=== PATIENT | female | born 1995 | race Caucasian/White ===

== ENCOUNTER 2018-02-23 18:58 | Inpatient (IN) | payer BC, OTHER ==
[~2018-02-23] VITALS: Ht 160 cm; Wt 43.1 kg
--- NOTE | 2018-02-23 19:15 | NUR ---
Start of Shift Patient Received. Patient is noted in the activities room participating in a group meeting. Per endorsement, patient continues on a 5 day Ativan and 5 day Subutex taper. Patient has been compliant with medications and tolerating plan of care well. No PRN medications administered. Last noted COWS 8 and CIWA 10. All needs attended to promptly. Will continue to monitor. Addendum: 02/24/18 at 0226 by CHELO MCKEON LVN ENTERED IN ERROR
[2018-02-23 20:45] VITALS: BP 110/61
--- NOTE | 2018-02-23 20:45 | NUR ---
Pre-Admission Assessment Patient is a 23 year old female seen in intake. She is alert to name and place. She is noted with to be very intoxicated with her head on the desk. Patient is able to lift head in response to name but her speech is noted to be slurred and unclear. Patient is noted to answer questions with one word answers and is noted to be very short and flat. Breathing is even and non labored. Patient is noted to be unkempt, dirty finger nails, and multiple scattered track bonilla to bilateral upper extremities. Discussed with patient admission policies of the unit and patient is able to verbalize understanding. Patient reported that she is arriving from the streets of [place] and is homeless and unemployed. Patient is ambulatory with assistance only. Vital signs taken and noted as follows: 110/61, 74, 99%, 16, 98.0, 0/10. Home medications policies reviewed with patient and she is able to verbalize understanding in regards to narcotic medication disposal. All needs attended to promptly. Will continue admission assessment on unit.
[2018-02-23] MEDS ORDERED: ACETAMINOPHEN 325 MG TABLET PO PRN (21:00)
[2018-02-23] MEDS ORDERED: MAG HYDROX/AL HYDROX/SIMETH 30 ML LIQUID UDC PO PRN (21:00)
[2018-02-23] MEDS ORDERED: DIAZEPAM 5 MG TABLET PO PRN (21:00)
[2018-02-23] MEDS ORDERED: LOPERAMIDE HCL 2 MG CAPSULE PO PRN ×2 (21:00)
[2018-02-23] MEDS ORDERED: MAGNESIUM HYDROXIDE 30 ML LIQUID UDC PO PRN (21:00)
[2018-02-23] MEDS ORDERED: ONDANSETRON 4 MG/2 ML VIAL IM PRN (21:00)
[2018-02-23] MEDS ORDERED: DICYCLOMINE HCL 20 MG TABLET PO PRN (21:00)
[2018-02-23] MEDS ORDERED: LORAZEPAM 2 MG/1 ML VIAL IM PRN (21:00)
[2018-02-23] MEDS ORDERED: CLONIDINE HCL 0.1 MG TABLET PO PRN (21:00)
[2018-02-23] MEDS ORDERED: ONDANSETRON ODT 4 MG TAB.RAPDIS SL PRN (21:00)
[2018-02-23] MEDS ORDERED: MIRALAX 17 GM POWD.PACK PO PRN (21:00)
[2018-02-23] MEDS ORDERED: DIAZEPAM 10 MG TABLET PO PRN ×2 (21:00)
[2018-02-23 21:21] VITALS: BP 97/54
[2018-02-23 21:30] LABS: BASOPHILS # (AUTO) 0.1 K/uL (0.0-8.0); BASOPHILS % (AUTO) 1.3 % (0.0-2.0); EOSINOPHILS # (AUTO) 0.2 K/uL (0.0-0.7); HEMATOCRIT 37.3 % (31.2-41.9); HEMOGLOBIN 12.7 g/dL (10.9-14.3); LYMPHOCYTES # (AUTO) 2.5 K/uL (20.0-40.0); MEAN CORPUSCULAR HEMOGLOBIN 28.3 uug (24.7-32.8); MEAN CORPUSCULAR HGB CONC 34 g/dL (32.3-35.6); MEAN CORPUSCULAR VOLUME 83.2 fL (75.5-95.3); MONOCYTES # (AUTO) 0.3 K/uL (2.0-10.0); MONOCYTES % (AUTO) 5.6 % (0.0-11.0); NEUTROPHILS # (AUTO) 2.9 K/uL (1.8-8.9); NEUTROPHILS % (AUTO) 48.1 % (38.5-71.5); PLATELET COUNT (AUTO) 324 K/uL (179-408); RED BLOOD CELL COUNT(AUTO) 4.48 MIL/uL (3.63-4.92); WHITE BLOOD COUNT (AUTO) 6.1 K/uL (3.8-11.8)
--- NOTE | 2018-02-23 21:30 | NUR ---
Admission Patient is a 23 year old female who is being admitted for medically supervised withdrawal from Xanax and Methamphetamines. The patient is noted to be intoxicated due to recent use of Xanax and Methamphetamines immediately prior to admission. She is alert to name and place. She is noted with to be very intoxicated with her head on the desk. Patient is able to lift head in response to name but her speech is noted to be slurred and unclear. Patient is noted to answer questions with one word answers and is noted to be very short and flat. Breathing is even and non labored. Patient is noted to be unkempt, dirty finger nails, and multiple scattered track bonilla to bilateral upper extremities. Patient is noted to be a poor historian and unable to obtain accurate amounts of substance use. Patient reports current substance use as follows: 1. Xanax: 18-20mg daily PO for the last 3 weeks. Patients last use was 02/23/18 just prior to admission. 2. Methamphetamines: 2GMs Daily IV for the last 3 weeks. Patients last use was 02/23/18 just prior to admission. 3. Marijuana: unknown amount via inhalation daily with last use just prior to admission. Patient has been to multiple treatment facilities with the most recent to admission to [facility] in January. Patient has been able to stay sober for 18 months approx 1 year ago. Vital signs noted as 97/54, 81, 16, 99%, 98.0, and 0/10 pain. Breathing even and non labored. Lung sounds clear with no cough noted. Bowel sounds hypoactive in all 4 quadrants. Skin noted with multiple scattered track bonilla to all extremities. She verbalizes no known allergies, wishes to be full code, and follows a regular diet. Patient is currently unemployed and homeless. Patient does not have a primary care physician. Past medical history is noted as Bipolar, anxiety, insomnia, and ADHD. No History of seizures noted. No home medications noted. All information reviewed with MD with orders placed. Labs to be rendered. PRN Medications available for increased signs and symptoms. One time order for Valium 20mg to be administered but to be held for sedation. Admission CIWA not able to be completed due to patients intoxication level. Will continue plan of care as ordered.
[2018-02-23 21:36] LABS: *URINE HCG, QUAL NEGATIVE (NEGATIVE)
[2018-02-23 21:41] LABS: ETHANOL < 3 MG/DL (0-0)
[2018-02-23 21:42] LABS: *AMPHETAMINE, URINE POSITIVE (NEGATIVE); *BARBITURATE, URINE POSITIVE (NEGATIVE); *CANNABINOID, URINE POSITIVE (NEGATIVE); *COCCAINE, URINE NEGATIVE (NEGATIVE); *OPIATE, URINE NEGATIVE (NEGATIVE); *PHENCYCLIDINE SCREEN,URINE NEGATIVE (NEGATIVE)
[2018-02-23 21:49] LABS: ALANINE AMINOTRANSFERASE 22 U/L (14-59); ALKALINE PHOSPHATASE 56 U/L (50-136); ASPARTATE AMINOTRANSFERASE 15 U/L (15-37); BILIRUBIN,TOTAL 0.5 mg/dL (0.2-1.0); CARBON DIOXIDE 24 mmol/L (21-32); CHLORIDE 100 mmol/L (98-107); CREATININE 0.8 mg/dL (0.6-1.3); GLUCOSE 80 mg/dL (74-106); POTASSIUM 3.5 mmol/L (3.5-5.1); UREA NITROGEN, BLOOD 13 mg/dL (7-18)
[2018-02-23 21:51] LABS: THYROID STIMULATING HORMONE 0.817 mIU/mL (0.358-3.740)
[2018-02-23] MEDS ORDERED: DIAZEPAM 10 MG TABLET PO ONE (22:00)
[2018-02-24 00:20] VITALS: BP 98/58
[2018-02-24] MEDS ORDERED: ONDA4TAB8 PO (02:59)
[2018-02-24] MEDS ORDERED: CLON-418 PO (02:59)
[2018-02-24] MEDS ORDERED: FOLI1TAB16 PO (02:59)
[2018-02-24] MEDS ORDERED: TRAZ-147 PO (02:59)
[2018-02-24] MEDS ORDERED: GABA-534 PO (02:59)
[2018-02-24] MEDS ORDERED: HYDR50CA PO (02:59)
[2018-02-24] MEDS ORDERED: OLAN5TAB3 PO (02:59)
[2018-02-24 04:10] VITALS: BP 96/55
--- NOTE | 2018-02-24 07:27 | NUR ---
End of Shift Patient is noted in bed sleeping. Breathing even and non labored. Patient was admitted 02/23/18 at 2121 for Benzo and Methamphetamines. Patient is set to start a Phenobarbital taper today 02/24/18 0900. Patient was noted to be a poor historian and unable to provide accurate information upon admission. No PRN Medications administered. Unable to complete a CIWA due to patient arriving intoxicated. Patient was placed on 1:1 for unsteady gait. Patient slept a total of 7 hours. All needs attended to promptly. Will endorse to continue plan of care as ordered.
--- NOTE | 2018-02-24 07:45 | NUR ---
Start of Shift Note: Received patient in her room with a 1:1 sitter within arm's reach. She is seen laying in bed with eyes closed. Easily arousable. She responds to verbal stimuli. She appears disheveled and unkept. Patient is a 21 year old male admitted for BZO/methamphetamine/marijuana withdrawal who was placed on a 5-day Phenobarbital and PRN Valium as ordered. No adverse reactions noted. Patient education provided regarding her plan of care for the day and her medication regimen. Encouraged oral fluid intake and encouraged group participation to learn new skills to prevent relapse. Addendum: 02/24/18 at 1826 by SNEHA COLEMAN LVN Patient is a 21 year old female.
[2018-02-24 08:00] VITALS: BP 94/58
[2018-02-24] MEDS: PHENOBARBITAL 60 MG TABLET PO SCH ×4 (08:55→21:01)
[2018-02-24] MEDS ORDERED: GABAPENTIN 300 MG CAPSULE PO SCH (09:00)
[2018-02-24] MEDS ORDERED: TUBERCULIN,PURIF.PROT.DERIV. 5 TU/0.1 ML TEST ID ONE (09:00)
[2018-02-24] MEDS ORDERED: PROM25TA15 PO (09:44)
[2018-02-24] MEDS ORDERED: ALBU8.5H8 INH (09:44)
[2018-02-24 12:00] VITALS: BP 93/64
--- NOTE | 2018-02-24 13:00 | NUR ---
Mid Shift Notes: Patient is in her room with a 1:1 at bedside and within arm's reach. CIWA 13 at 1200. VS stable. Will continue to monitor.
[2018-02-24] MEDS ORDERED: [UNRECOGNIZED DRUG - OTHER] INH PRN (13:15)
[2018-02-24] MEDS ORDERED: ALBUTEROL INH PRN (13:15)
[2018-02-24 16:00] VITALS: BP 107/69
--- NOTE | 2018-02-24 16:40 | NUR ---
Off 1:1: Patient is ambulating steadily. Ambulatory ad aparna. No assistance needed with ADL's. No signs of sedation noted. Notified MD and DC'd patient from 1:1 at this time.
--- NOTE | 2018-02-24 19:02 | NUR ---
End of Shift Notes: Patient initiated her 5-day Phenobarbital taper as ordered to manage symptoms related to BZO withdrawal. VS monitored closely. No significant abnormalities noted. Withdrawal symptoms were closely monitored. Initial CIWA 14, patient presented with anxiety, agitation, sweating and tremors. Denies S/I or H/I noted. No AV hallucinations noted. Last CIWA 11. Patient was discontinued from 1:1. Patient is now ambulating independently with steady gait. Unable to participate in group and activities due to her withdrawal symptoms. Compliant with care and treatment. Patient slept for most of the shift. All needs met and attended. Will continue to monitor closely.
--- NOTE | 2018-02-24 19:10 | NUR ---
Start of Shift Patient Received. Patient is noted in the activities room participating in a group meeting. Per endorsement, patient has completed a 5 day Subutex and Ativan taper. Patient has been compliant with group meetings and social activities. Last noted CIWA 7 and COWS 5. NO PRN medications administered. All needs attended to promptly. Will continue plan of care as ordered.
[2018-02-24 20:46] VITALS: BP 126/94
[2018-02-24] MEDS: GABAPENTIN 300 MG CAPSULE PO SCH (21:01)
[2018-02-24] MEDS: diphenhydrAMINE 50 MG CAPSULE PO PRN (22:59)
--- NOTE | 2018-02-24 23:00 | NUR ---
Behavior/PRN Medication Administration Patient is noted discussing medications with other clients. Patient noted to state "I dont get what the big deal is. I dont understand why you guys have to be so strict." Patient was redirected and educated on unit rules. Patient is verbalizing increased anxiety, agitation, insomnia, and increased sweats. She is noted to be easily irritable, noted to be pacing in the room, frequently shifting in positions. CIWA noted to be 20. PRN Valium 20mg and Benadryl administered. Will continue to monitor.
[2018-02-25 00:32] VITALS: BP 109/78
[2018-02-25] MEDS: IBUPROFEN 400 MG TABLET PO PRN ×2 (01:03→08:58)
--- NOTE | 2018-02-25 01:13 | NUR ---
PRN Medication Administration Patient is noted returning from shower. She is noted to be very restless, increased anxiety, fidgety, irritable, verbalizing insomnia, body aches, increased stomach cramps. Patient states "I'm so frustrated because the Phenobarbital didn't touch me, the valium didn't do anything for me, its like what next. I just want to chill and sleep but I cant." CIWA noted to be 14. PRN Valium 10mg, Motrin, and Bentyl administered. Will continue to monitor. Addendum: 02/25/18 at 0118 by CHELO MCKEON LVN PRN Valium 20mg and Benadryl noted not effective. Will continue to monitor.
--- NOTE | 2018-02-25 02:20 | NUR ---
PRN Medication Reassessment Patient is noted in bed sleeping. Breathing even and non labored. PRN Valium, Motrin, and Bentyl noted to be effective. Will continue to monitor.
[2018-02-25 04:16] VITALS: BP 96/55
--- NOTE | 2018-02-25 06:58 | NUR ---
End of Shift Patient is in bed sleeping. Breathing even and non labored. Patient continues on a 5 day Phenobarbital taper with PRN Valium available for noted elevated CIWA. Patient was noted with behavioral episode and noted talking with other patients regarding medications. Patient was redirected and educated on unit rules. She was able to verbalize understanding. PRN Valium 20mg and Benadryl administered and noted not effective. Patient was then given PRN Valium 10mg, Motrin, and Bentyl with medications noted to be effective. Last noted CIWA 14. Patient noted to sleep a total of 4 hours. All needs attended to promptly. Will endorse to continue plan of care as ordered.
--- NOTE | 2018-02-25 07:20 | NUR ---
Start of Shift Notes: Received report from night nurse. Patient is a 23 year old female admitted for with BZO withdrawal who was placed on a 5-day Phenobarbital taper as ordered. No adverse reactions noted. Patient is currently on day 2 of her taper. Received patient in her room. Alert, verbally responsive. Oriented x 4. Appears drowsy upon waking. She is able to carry on a conversation coherently. She was given PRN Valium x 2, Benadryl and Bentyl. Slept for 4 hours. Last 14. Addendum: 02/25/18 at 0755 by SNEHA COLEMAN LVN Educated patient on the current plan of care for the day and her medication regimen. Encouraged oral fluid intake and encouraged group participation to learn new skills to prevent relapse.
[2018-02-25 08:00] VITALS: BP 90/65
[2018-02-25] MEDS: PHENOBARBITAL 60 MG TABLET PO SCH ×3 (08:58→21:58)
[2018-02-25] MEDS: GABAPENTIN 300 MG CAPSULE PO SCH ×2 (08:58→14:04)
--- NOTE | 2018-02-25 08:58 | NUR ---
Motrin 400 mg PO given: Patient noted with complain of 6/10 low back pain. Non-pharmacological interventions provided but ineffective. Medicated patient with Motrin 400 mg PO as ordered. Will monitor for effectiveness.
--- NOTE | 2018-02-25 09:58 | NUR ---
Re-assessment: Motrin Patient verbalizes that PRN Motrin was mildly effective in reducing low back pain. Patient states "It's still there, about a 4 out of 10." Notified Dr. Xie.
--- NOTE | 2018-02-25 10:25 | NUR ---
Zofran 4 mg IM given: Patient noted with x 1 episode of emesis due to withdrawals. Patient states "I'm so sick. I just puked." Medicated patient with Zofran 4 mg IM as ordered. Will monitor for effectiveness.
[2018-02-25] MEDS ORDERED: DIAZEPAM 10 MG TABLET PO ONE (10:30)
--- NOTE | 2018-02-25 10:36 | NUR ---
Valium 20 mg PO given: Patient's CIWA 21, due to nausea/vomiting, anxiety, agitation, tremors, and sweating. Patient keeps on pacing along the hallway. States "I feel so sick, I don't know, my anxiety is so high right now." Encouraged PMR and to verbalize her feelings and concerns with no help. Notified MD Xie and medicated patient with Valium 20 mg PO as ordered. Will monitor for effectiveness.
--- NOTE | 2018-02-25 10:55 | NUR ---
Re-assessment: Zofran IM. Patient verbalizes relief from nausea and vomiting. She states "I haven't puked since you gave me that shot." PRN Zofran IM was effective.
--- NOTE | 2018-02-25 11:36 | NUR ---
Re-assessment: Valium 20 mg CIWA 11, N/V ceased. Less anxiety and agitation noted. However, patient continues to complain of anxiety. Pacing along the hallway. Restlesness and unable to stay in one place. Redirection provided with help. Will continue to monitor.
[2018-02-25 12:00] VITALS: BP 117/80
[2018-02-25 13:10] LABS: HEPATITIS B SURFACE AG Negative (Negative)
[2018-02-25] MEDS ORDERED: DIAZEPAM 5 MG TABLET PO PRN (14:00)
[2018-02-25] MEDS ORDERED: BACLOFEN 20 MG TABLET PO PRN (14:00)
[2018-02-25] MEDS ORDERED: DIAZEPAM 10 MG TABLET PO PRN ×2 (14:00)
[2018-02-25 16:00] VITALS: BP 101/71
--- NOTE | 2018-02-25 16:45 | NUR ---
Valium 10mg/Tylenol 650 mg/Baclofen 20 mg PO given/MD Communication: Patient states "Can you give me something? My pain is 10 out of 10 right now on my back. However, patient is seen conversing with other clients and requesting to smoke before getting her medications. Patient was encouraged to stay in her room and rest to help with the pain but patient states "No, I'm fine right now. I'm just going to go smoke real quick." Patient's VS BP 101/77, Pulse 74, O2 sat 100% RA. CIWA 15, due to anxiety, agitation, sweats and tremors. Notified Dr. Xie of patient's CIWA score and per MD, continue to administer PRN Valium per CIWA score of 15 and Baclofen and Tylenol administered for back pain. Offered heat packs to the patient but she refused. She states "That shit is not going to work for me. Thanks anyway."
--- NOTE | 2018-02-25 16:58 | NUR ---
PRN ROBAXIN/TYLENOL AND VISTARIL & BEHAVIOR Patient reports "my stomach is killing me" My pain is 10/10. Patient reports she feels very anxious. Patient provided with calming reassurance with no relief. patient agitated and unable to redirect. Patient was administered Tylenol, Robaxin and Vistaril as ordered. Patient was offered heat pack and patient stated "that shit does not work, i don't want it" patient was offered Mylanta for heart burn and patient refused "i don't want that, i want my Subutex" patient was explained detox medication taper protocol. patient explained all last administration of medications, including detox medications. patient continues to be tearful, loud voice, agitated, despite much calming reassurance and non pharmacological interventions. MD aware of patients current status and behavior. Safety measures are in place. call light kept with in reach. Continues under close observation. Addendum: 02/25/18 at 1840 by DEVIN JORGENSEN LVN DISREGARD NOTE ABOVE; WRONG PATIENT
--- NOTE | 2018-02-25 17:41 | NUR ---
Re-assessment: Valium CIWA is now 8 due to anxiety and agitation. Patient continues to complain of "not feeling well." But is seen socializing in the patio, in the rec room with her peers. Offered other PRN medication available but patient refused. Patient states "That shit doesn't work." Will continue to monitor.
--- NOTE | 2018-02-25 17:45 | NUR ---
Re-assessment: Baclofen/Tylenol Patient verbalizes relief from back pain. She states that back pain is now 5 out of 10. PRN Baclofen and Tylenol was effective.
--- NOTE | 2018-02-25 19:15 | NUR ---
Start of Shift Patient Received. Patient is noted in her room. Per endorsement, patient is noted to be a high risk for AMA and also noted with several episodes of behavior. Patient continues on a 5 day Phenobarbital taper and received multiple PRN medications. She was noted with discussing medications with other patients. She was educated on units rules. PRN Zofran, Valium 20mg, Valium 10mg, Motrin, Baclofen, and Tylenol all administered. last noted CIWA 8. All needs attended to promptly. Will continue plan of care as ordered.
--- NOTE | 2018-02-25 19:19 | NUR ---
End of Shift Notes: Patient continues to be on 5-day Phenobarbital taper as ordered. No adverse reactions noted. VS monitored closely. No significant abnormalities noted. Withdrawal symptoms were closely monitored. Initial CIWA 14, patient presented with anxiety, agitation, tremors, and sweats. Denies S/I or H/I noted. No AV hallucinations noted. PRN Motrin given at 0858 for back pain with help. At 1036, patient's CIWA increased to 21 showing signs and symptoms of withdrawal such as severe nausea, vomiting, anxiety/agitation, tremors and complains of "not feeling well." Dr. Xie made aware and medicated patient with Zofran 4 mg IM and Valium 20 mg PO with help after 1 hour. Patient is at high risk for AMA, due to refusal to adhere to unit's policies. At 1645, patient was medication with Valium 10 mg PO, Baclofen 20 mg PO and Tylenol 650 mg PO as ordered with help after 1 hour. Patient was unable to participate in group and activities. Oral fluids encouraged. Patient continues to require further education and encouragement to maintain sobriety. All needs met and attended. Will continue to monitor closely.
--- NOTE | 2018-02-25 20:30 | NUR ---
Behavior/ Code Luis Patient is high risk for AMA and was noted speaking with Administration regarding continuation of stay or possible AMA. Patient was instructed by administration not to speak to other patients due to patient manipulating other patients on leaving AMA. Patient deviated away from administration while in the [place] and noted to speak to another patient. She was then told she was going to be escorted off the unit. patient continues to disregard rules. Code luis was called with staff responding appropriately. Attempted multiple times to de-escalate. Administration then explained to patient that if she opted to stay, she would be placed on Room Restriction for remainder of stay based on her behavior. Patient complied and returned to her room with smoking breaks every 3 hours as per administration protocol.
[2018-02-25] MEDS ORDERED: GABAPENTIN 300 MG CAPSULE PO SCH (21:00)
[2018-02-25 21:34] VITALS: BP 116/79
[2018-02-25] MEDS: diphenhydrAMINE 50 MG CAPSULE PO PRN (22:00)
--- NOTE | 2018-02-25 22:15 | NUR ---
PRN Medication Administration/Contraband found in room Patient is noted in her room, emotional and verbalizing "I dont understand why I have to be placed on room restriction for the entire time I'm here. What am I going to do the whole time?" Allowed patient to verbalize feelings and offered support. Patient was then noted to say "I didnt even kiss her in the activities room. I kissed her here in front of my room. I wasn't even touching her in there." Explained to patient that such behavior was not tolerated on the unit and educated patient of unit rules. Patient verbalized "can i please just have something to help me sleep.?" PRN Benadryl administered as per order with routine medications. upon exiting the room patient was noted to possess personal JUUL Vape plugged in at bedside. patient then asked multiple times for primary nurse to not inform administration. Explained to patient that proper actions needed to take place. CN, Primary Nurse, and RAILROAD YARD WORKER Monkey Keeper all at beside. patient verbalized "I grabbed it while I was down stairs looking for my phone." Administration was informed with room search and body search to be conducted. Patient complied.
--- NOTE | 2018-02-25 23:15 | NUR ---
PRN Medication Reassessment Patient is noted in bed sleeping. Breathing even and non labored. No restlessness noted. Patient was given PRN Benadryl administered with medication noted to be effective. Will continue to monitor.
[2018-02-26 00:39] VITALS: BP 109/68
[2018-02-26 04:15] VITALS: BP 101/57
--- NOTE | 2018-02-26 07:01 | NUR ---
End of Shift Patient is in bed sleeping. Breathing even and non labored. patient continues on a 5 day Phenobarbital taper. Patient was noted with episode of behavior resulting in patient placed on Room Restriction for remainder of stay. After being placed on Room Restriction patient was then noted with contraband in her room with administration made aware. She received PRN Benadryl with medication noted effective. Last noted CIWA 13. She was noted to sleep a total of 7 hours. All needs attended to promptly. Will endorse to continue plan of care as ordered.
--- NOTE | 2018-02-26 07:53 | NUR ---
Start of shift note; Received report from night nurse. Patient is a 23 year old female admitted on 02/23/18 for Benzodiazepine withdrawal. Patient was placed on a Phenobarbital taper, no adverse reactions noted. Patient last CIWA is 13 per endorsement. Patient is high risk for AMA per endorsement. Educated patient regarding the importance of compliance to treatment and medication regime. All safety measures secured. Will continue to monitor patient.
[2018-02-26 08:00] VITALS: BP 92/62
[2018-02-26] MEDS ORDERED: PHENOBARBITAL 60 MG TABLET PO SCH ×3 (09:00→21:00)
[2018-02-26] MEDS: GABAPENTIN 300 MG CAPSULE PO SCH (09:38)
[2018-02-26 12:00] VITALS: BP 125/91
[2018-02-26] MEDS: IBUPROFEN 400 MG TABLET PO PRN (12:01)
--- NOTE | 2018-02-26 12:01 | NUR ---
PRN medication; Patient is complaining of back pain rated 6/10 on pain scale. PRN Motrin 400mg PO given for pain. Will continue to monitor patient for effectiveness of medication.
--- NOTE | 2018-02-26 12:38 | NUR ---
Behavioral note; Patient is AOX4. Patient verbalized to administrative staff that she wants to leave AMA today. Patient was educated regarding the importance of compliance to treatment and why she was placed and remains on room restriction. Re-directed patient as needed. Patient stated "I"m losing my mind , i can't do anything i want to leave". Explained to patient [facility] under direct supervision, patient verbalized understanding. Will closely monitor patient. Notified MD regarding patient wanting to leave AMA.
--- NOTE | 2018-02-26 13:01 | NUR ---
Re-assessment; Patient denies pain at this time. PRN medication noted to be effective.
--- NOTE | 2018-02-26 13:55 | NUR ---
AMA note; Patient left AMA. Patient refused to comply to treatment and unit protocols. Patient educated about the risks and consequences of leaving AMA, patient verbalized understanding but was adamant about leaving. Multiple staff members including MD , patient advocates, accounts payable administrator and nurses attempted to reason with patient without any success. VS WNL, skin is intact and denied any suicidal and homicidal ideations. MD was notified. AMA forms explained and signed. Patient was given a list of community resources. All belongings and home medications returned to patient. Patient left facility AMA on 02/26/18 at 1355.
[2018-02-26] MEDS ORDERED: GABAPENTIN 300 MG CAPSULE PO SCH (15:00)
[2018-02-27] MEDS ORDERED: PHENOBARBITAL 60 MG TABLET PO SCH (09:00)
[2018-02-28] MEDS ORDERED: PHENOBARBITAL 60 MG TABLET PO SCH (09:00)
[2018-03-01] MEDS ORDERED: PHENOBARBITAL 60 MG TABLET PO SCH (09:00)
[2018-03-02 16:07] LABS: HEPATITIS A AB, IgM Negative (Negative); HEPATITIS A AB, TOTAL Positive (Negative)
== END 2018-02-26 13:55 | disposition left against medical advice (07) | DRG 894 ==
LOC: SRC 20:12
PROVIDERS: ADMIT Internal Medicine; ATTEND Internal Medicine
PROC: HZ2ZZZZ Detoxification Services for Substance Abuse Treatment (ICD-10-PCS; principal; 2018-02-23)
PROC: HZ31ZZZ Individual Counseling for Substance Abuse Treatment, Behavioral (ICD-10-PCS; 2018-02-26)
DX: F15.221 Other stimulant dependence with intoxication delirium (principal); F13.239 Sedative, hypnotic or anxiolytic dependence with withdrawal, unspecified; F31.9 Bipolar disorder, unspecified; E87.1 Hypo-osmolality and hyponatremia; E86.0 Dehydration; F17.210 Nicotine dependence, cigarettes, uncomplicated; F41.9 Anxiety disorder, unspecified; F90.9 Attention-deficit hyperactivity disorder, unspecified type; G47.00 Insomnia, unspecified; F14.10 Cocaine abuse, uncomplicated; F12.10 Cannabis abuse, uncomplicated; Z59.1 Inadequate housing; Z59.0 Homelessness; Z91.89 Other specified personal risk factors, not elsewhere classified; Z20.5 Contact with and (suspected) exposure to viral hepatitis
CPT/HCPCS: 36415; 80307; 80324; 80345; 80346; 80349; 83735; 84443; 84703; 85025; 86580; 86592; 86705; 86708; 86709; 86803; 87340; 87806; A4663; G0480; J2405; J8499; Q0163